=== PATIENT | male | born 1980 | race Caucasian/White ===

== ENCOUNTER 2016-07-20 20:04 | Emergency (ER) | payer SELFPAY ==
[2016-07-20 20:21] VITALS: BP 145/86
[2016-07-20] MEDS ORDERED: LOPERAMIDE 2 MG CAPSULE PO STA (20:42)
[2016-07-20] MEDS ORDERED: IV NORMAL SALINE 1000ML BAG 1,000 ML IV SCH (20:42)
[2016-07-20] MEDS ORDERED: KETOROLAC TROMETHAMINE 30 MG/ML INJ. IV ONE (20:45)
[2016-07-20] MEDS ORDERED: ONDANSETRON PF 4 MG/2 ML VIAL. IV ONE (20:45)
[2016-07-20 21:27] LABS: CALCIUM 9.8 mg/dL (8.5-10.1); CREATININE 0.9 mg/dL (0.7-1.3); GFR 97.2; POTASSIUM 3.6 mmol/L (3.5-5.1)
[2016-07-20 21:29] LABS: ALBUMIN 4.8 g/dL (3.4-5.0); DIRECT BILIRUBIN 0.2 mg/dL (0.0-0.2); TOTAL BILIRUBIN 1.8 mg/dL (0.2-1.0); TOTAL PROTEIN 8.7 g/dL (6.4-8.2)
[2016-07-20] MEDS ORDERED: ONDA4TAB10 SL (21:37)
--- NOTE | 2016-07-20 21:44 | PHYS DOC ---
Past Medical History Past Medical History: Asthma, Hypertension Past Surgical History: Other Additional Past Surgical Histo: RIGHT ANKLE SX Alcohol Use: Rarely Drug Use: None Adult General Chief Complaint Chief Complaint: NAUSEA/VOMITING/DIARRHA HPI HPI Patient is a 35 year old male who presents with multiple episodes of watery diarrhea as well as few episodes of vomiting associated with epigastric abdominal pain that is intermittent and crampy. States he has minimal abdominal pain at this time. His is sick with similar illness. He has chills without measured fever as well as joint aches. He denies dysuria, hematuria, bloody or dark stools, bloody or bilious emesis, chest pain, cough, recent travel, recent antibiotics. Review of Systems Review of Systems Constitutional: Denies measured fever [] Eyes: Denies change in visual acuity, redness, or eye pain [] HENT: Denies nasal congestion or sore throat [] Respiratory: Denies cough or shortness of breath [] Cardiovascular: No additional information not addressed in HPI [] GI: Denies bloody stools or bloody emesis [] : Denies dysuria or hematuria [] Musculoskeletal: Denies back pain or joint pain [] Integument: Denies rash or skin lesions [] Neurologic: Denies headache, focal weakness or sensory changes [] Endocrine: Denies polyuria or polydipsia [] Current Medications Current Medications Current Medications Medications (Trade) Dose Ordered Sig/Siddharth Start Time Stop Time Status Last Admin Dose Admin Ketorolac Tromethamine (Toradol) 15 mg 1X ONCE 07/20/16 20:45 07/20/16 20:47 DC 07/20/16 21:03 15 MG Loperamide HCl (Imodium) 2 mg 1X STAT 07/20/16 20:42 07/20/16 20:47 DC 07/20/16 21:03 2 MG Ondansetron HCl (Zofran) 4 mg 1X ONCE 07/20/16 20:45 07/20/16 20:47 DC 07/20/16 21:02 4 MG Sodium Chloride 1,000 ml @ 1,000 mls/hr Q1H 07/20/16 20:42 07/20/16 21:41 DC 07/20/16 21:03 1,000 MLS/HR Allergies Allergies Allergies Coded Allergies Type Severity Reaction Last Updated Verified morphine Allergy Intermediate Nausea and Vomiting 01/04/15 Yes Physical Exam Physical Exam Constitutional: Well developed, well nourished, no acute distress, non-toxic appearance. [] HENT: Normocephalic, atraumatic, bilateral external ears normal, oropharynx moist, nose normal. [] Eyes: PERRLA, EOMI. [] Neck: Normal range of motion, supple. [] Cardiovascular:Heart rate regular rhythm, no murmur [] Lungs & Thorax: Bilateral breath sounds clear to auscultation [] Abdomen: Bowel sounds normal, soft, no tenderness. [] Skin: Warm, dry, no erythema, no rash. [] Back: Normal ROM. [] Extremities: No tenderness, ROM intact, no edema. [] Neurologic: Alert and oriented X 3, normal motor function, normal sensory function, no focal deficits noted. [] Psychologic: Affect normal, judgement normal, mood normal. [] Current Patient Data Vital Signs Vital Signs Date Time Temp Pulse Resp B/P (MAP) Pulse Ox O2 Delivery O2 Flow Rate FiO2 07/20/16 20:21 98.4 61 16 145/86 (105) 97 Room Air 98.4 Lab Values Laboratory Tests Test 07/20/16 21:00 Sodium Level 139 mmol/L (136-145) Potassium Level 3.6 mmol/L (3.5-5.1) Chloride Level 102 mmol/L (98-107) Carbon Dioxide Level 28 mmol/L (21-32) Anion Gap 9 (6-14) Blood Urea Nitrogen 18 mg/dL (8-26) Creatinine 0.9 mg/dL (0.7-1.3) Estimated GFR (Cockcroft-Gault) 97.2 Glucose Level 114 mg/dL (70-99) H Calcium Level 9.8 mg/dL (8.5-10.1) Total Bilirubin 1.8 mg/dL (0.2-1.0) H Direct Bilirubin 0.2 mg/dL (0.0-0.2) Aspartate Amino Transferase (AST) 23 U/L (15-37) Alanine Aminotransferase (ALT) 34 U/L (16-63) Alkaline Phosphatase 75 U/L (46-116) Total Protein 8.7 g/dL (6.4-8.2) H Albumin 4.8 g/dL (3.4-5.0) Lipase 90 U/L (73-393) Laboratory Tests 07/20/16 21:00 Course & Med Decision Making Course & Med Decision Making Pertinent Labs and Imaging studies reviewed. (See chart for details) Workup is unremarkable. He is feeling better after medications and would like to go home. He is tolerating oral intake. Return precautions given. He understands and agrees with plan. Dragon Disclaimer Dragon Disclaimer This electronic medical record was generated, in whole or in part, using a voice recognition dictation system. Departure Departure Impression: Primary Impression: Epigastric abdominal pain Additional Impression: Nausea vomiting and diarrhea Disposition: HOME, SELF-CARE Condition: STABLE Referrals: NO PCP (PCP) Patient Instructions: Diet for Diarrhea, Adult Additional Instructions: Take Zofran as needed for nausea. Take Imodium as needed for diarrhea. Drink liquids to stay hydrated. Follow-up with your primary care doctor. Return for any concerns. Scripts Ondansetron (ZOFRAN ODT) 4 Mg Tab.rapdis 1 TAB SL Q8HRS Y for NAUSEA/VOMITING, #10 TAB Prov: Laxmi OSCAR MD 07/20/16 Problem Qualifiers Laxmi OSCAR MD July 20, 2016 21:44
== END 2016-07-20 21:50 | disposition home or self-care (01) ==
LOC: ER 21:21
DX: R19.7 Diarrhea, unspecified (principal); R11.2 Nausea with vomiting, unspecified; R10.13 Epigastric pain; I10 Essential (primary) hypertension; J45.909 Unspecified asthma, uncomplicated; Z88.5 Allergy status to narcotic agent
CPT/HCPCS: 36415; 80048; 80076; 83690; 96361; 96374; 96375; 99284; J1885; J2405; J7030

== ENCOUNTER 2018-12-04 01:10 | Emergency (ER) | payer SELFPAY ==
[~2018-12-04] VITALS: Ht 182.9 cm; Wt 90.7 kg
[~2018-12-04 01:10] MED LIST: ONDA4TAB10 SL
[2018-12-04 01:44] LABS: BASO # 0.1 x10^3/uL (0.0-0.2); BASO % 1 % (0-3); EOS # 0.2 x10^3/uL (0.0-0.7); EOS % 2 % (0-3); HEMATOCRIT 45.4 % (39.0-53.0); HEMOGLOBIN 16.2 g/dL (13.0-17.5); LYMPH # 3.7 x10^3/uL (1.0-4.8); LYMPH % 40 % (24-48); MEAN CORPUSCULAR HEMOGLOBIN 31 pg (25-35); MEAN CORPUSCULAR HGB CONC 36 g/dL (31-37); MEAN CORPUSCULAR VOLUME 87 fL (79-100); MONO # 0.6 x10^3/uL (0.0-1.1); MONO % 7 % (0-9); NEUT # 4.6 x10^3/uL (1.8-7.7); NEUT % 50 % (31-73); PLATELET COUNT 204 x10^3/uL (140-400); RED BLOOD COUNT 5.24 x10^6/uL (4.30-5.70); RED CELL DISTRIBUTION WIDTH 13.9 % (11.5-14.5); WHITE BLOOD COUNT 9.2 x10^3/uL (4.0-11.0)
[2018-12-04 01:49] LABS: CALCIUM 9.2 mg/dL (8.5-10.1); CREATININE 0.8 mg/dL (0.7-1.3); GFR 109.4; POTASSIUM 3.5 mmol/L (3.5-5.1)
[2018-12-04 01:55] LABS: ALBUMIN 4.3 g/dL (3.4-5.0); ALBUMIN/GLOBULIN RATIO 1.3 (1.0-1.7); TOTAL BILIRUBIN 0.3 mg/dL (0.2-1.0); TOTAL PROTEIN 7.6 g/dL (6.4-8.2)
--- NOTE | 2018-12-04 02:14 | PHYS DOC ---
Past Medical History Past Medical History: Asthma, Hypertension Past Surgical History: Other Additional Past Surgical Histo: RIGHT ANKLE SX Alcohol Use: Heavy Drug Use: None Adult General Chief Complaint Chief Complaint: HYPERTENSION HPI HPI 38-year-old male presents to emergency department with complaints of cough, elevated blood pressure. Patient has a chest pain or shortness of breath. He sta rebel his family history of hypertension, his grandfather recently . Patient spent a lot of stress and measure his blood pressure consistently, the his blood pressures been elevated. He is unable to get into primary care physician for couple of weeks. He presents tonight because he is concerned. Patient denies any headache or visual changes, denies abdominal pain nausea or vomiting. Nothing makes his cough worse. Review of Systems Review of Systems Constitutional: Denies fever or chills [] Eyes: Denies change in visual acuity, redness, or eye pain [] HENT: Denies nasal congestion or sore throat [] Respiratory: + cough, no shortness of breath [] Cardiovascular: No additional information not addressed in HPI [] GI: Denies abdominal pain, nausea, vomiting Musculoskeletal: Denies back pain or joint pain [] Integument: Denies rash or skin lesions [] Neurologic: Denies headache, focal weakness or sensory changes [] All other systems were reviewed and found to be within normal limits, except as documented in this note. Allergies Allergies Allergies Coded Allergies Type Severity Reaction Last Updated Verified morphine Allergy Intermediate Nausea and Vomiting 01/04/15 Yes Physical Exam Physical Exam Constitutional: Well developed, well nourished, no acute distress, non-toxic appearance. [] HENT: Normocephalic, atraumatic, bilateral external ears normal, oropharynx moist, no oral exudates, nose normal. [] Eyes: PERRLA, EOMI, conjunctiva normal, no discharge. [] Cardiovascular:Heart rate regular rhythm, no murmur [] Lungs & Thorax: Bilateral breath sounds clear to auscultation [] Abdomen: Bowel sounds normal, soft, no tenderness, no masses, no pulsatile masses. [] Skin: Warm, dry, no erythema, no rash. [] Extremities: No tenderness, no edema. [] Neurologic: Alert and oriented X 3, no focal deficits noted. [] Psychologic: Affect normal, judgement normal, mood normal. [] Current Patient Data Vital Signs Vital Signs Date Time Temp Pulse Resp B/P (MAP) Pulse Ox O2 Delivery O2 Flow Rate FiO2 12/04/18 01:10 97.8 81 17 158/87 (110) 97 Room Air 97.8 Lab Values Laboratory Tests Test 12/04/18 01:25 White Blood Count 9.2 x10^3/uL (4.0-11.0) Red Blood Count 5.24 x10^6/uL (4.30-5.70) Hemoglobin 16.2 g/dL (13.0-17.5) Hematocrit 45.4 % (39.0-53.0) Mean Corpuscular Volume 87 fL (79-100) Mean Corpuscular Hemoglobin 31 pg (25-35) Mean Corpuscular Hemoglobin Concent 36 g/dL (31-37) Red Cell Distribution Width 13.9 % (11.5-14.5) Platelet Count 204 x10^3/uL (140-400) Neutrophils (%) (Auto) 50 % (31-73) Lymphocytes (%) (Auto) 40 % (24-48) Monocytes (%) (Auto) 7 % (0-9) Eosinophils (%) (Auto) 2 % (0-3) Basophils (%) (Auto) 1 % (0-3) Neutrophils # (Auto) 4.6 x10^3/uL (1.8-7.7) Lymphocytes # (Auto) 3.7 x10^3/uL (1.0-4.8) Monocytes # (Auto) 0.6 x10^3/uL (0.0-1.1) Eosinophils # (Auto) 0.2 x10^3/uL (0.0-0.7) Basophils # (Auto) 0.1 x10^3/uL (0.0-0.2) Sodium Level 145 mmol/L (136-145) Potassium Level 3.5 mmol/L (3.5-5.1) Chloride Level 109 mmol/L (98-107) H Carbon Dioxide Level 25 mmol/L (21-32) Anion Gap 11 (6-14) Blood Urea Nitrogen 15 mg/dL (8-26) Creatinine 0.8 mg/dL (0.7-1.3) Estimated GFR (Cockcroft-Gault) 109.4 BUN/Creatinine Ratio 19 (6-20) Glucose Level 120 mg/dL (70-99) H Calcium Level 9.2 mg/dL (8.5-10.1) Total Bilirubin 0.3 mg/dL (0.2-1.0) Aspartate Amino Transferase (AST) 17 U/L (15-37) Alanine Aminotransferase (ALT) 28 U/L (16-63) Alkaline Phosphatase 89 U/L (46-116) Total Protein 7.6 g/dL (6.4-8.2) Albumin 4.3 g/dL (3.4-5.0) Albumin/Globulin Ratio 1.3 (1.0-1.7) Laboratory Tests 12/04/18 01:25 Laboratory Tests 12/04/18 01:25 EKG EKG EKG reviewed, normal sinus rhythm heart rate 75, no evidence of acute ST or T wave change pressure, no STEMI appreciated.[] Interpretation Time: Interpretation time 0200 Radiology/Procedures Radiology/Procedures wet read of cxr reveals no evidence of acute process, no effusion or consolidation [] Course & Med Decision Making Course & Med Decision Making Pertinent Labs and Imaging studies reviewed. (See chart for details) []38-year-old male presents to emergency department with complaints of cough, elevated blood pressure. Patient has a chest pain or shortness of breath. He states his family history of hypertension, his grandfather recently . Patient spent a lot of stress and measure his blood pressure consistently, the his blood pressures been elevated. He is unable to get into primary care physician for couple of weeks. He presents tonight because he is concerned. Patient denies any headache or visual changes, denies abdominal pain nausea or vomiting. Nothing makes his cough worse. Labs reviewed. X-ray reveals no evidence of acute consolidation. Blood pressure improved emergency department, I have recommended further evaluation with different sized cuff at home as the one he has been up recalibrated. I have provided information regarding blood pressure monitoring for future reference that he may take to his primary care physician's office when establishing care. At this time would not start patient on blood pressure medication given his current readings. Discussed with the patient discharge plans, he is understanding of the discharge plans. Return precautions provided Dragon Disclaimer Dragon Disclaimer This electronic medical record was generated, in whole or in part, using a voice recognition dictation system. Departure Departure Impression: Primary Impression: Elevated blood pressure reading Additional Impression: Cough Disposition: 01 HOME, SELF-CARE Condition: STABLE Referrals: NO PCP (PCP) Patient Instructions: Cough, Adult, [id number], Form - Blood Pressure Record Sheet, How to Take Your Blood Pressure, [id number] Additional Instructions: Recommend follow up with PCP 3 - 5 days Return to the ER with worsening symptoms, intractable pain, fever, altered mental status Tylenol/Motrin as needed for pain Chest xray without evidence of acute process (no pneumonia, fluid) appreciated Problem Qualifiers VISHAL WU MD Dec 04, 2018 02:14
[2018-12-04 02:18] VITALS: BP 128/65
--- NOTE | 2018-12-04 03:23 | RAD ---
EXAM: CHEST ONE VIEW. HISTORY: Cough. COMPARISON: None. FINDINGS: A frontal view of the chest is obtained. There are no confluent infiltrates. There is no pneumothorax or pleural effusion. The heart is not enlarged. IMPRESSION: 1. No confluent infiltrates. Electronically signed by: Meg Flores MD (12/04/2018 3:20 AM) [id number]
--- NOTE | 2018-12-04 06:20 | EKG ---
[facility] [address] [place] [address] Test Date: 2018-12-04 Test Time: 01:43:26 Pat Name: KIRAN MARTINEZ Department: Room: Gender: M [employer]: : 1980 Requested By: VISHAL WU Order Number: [id number] Reading MD: Measurements Intervals [place] Rate: 75 P: 34 DE: 156 QRS: 51 QRSD: 86 T: 49 QT: 356 QTc: 400 Interpretive Statements SINUS RHYTHM QRS(T) CONTOUR ABNORMALITY CONSIDER ANTEROLATERAL MYOCARDIAL DAMAGE POSSIBLY ABNORMAL ECG RI6.01 No previous ECG available for comparison
== END 2018-12-04 02:35 | disposition home or self-care (01) ==
LOC: ER 01:10
DX: R03.0 Elevated blood-pressure reading, without diagnosis of hypertension (principal); R05 Cough; J45.909 Unspecified asthma, uncomplicated; F10.20 Alcohol dependence, uncomplicated; Y90.9 Presence of alcohol in blood, level not specified; Z82.49 Family history of ischemic heart disease and other diseases of the circulatory system; Z88.5 Allergy status to narcotic agent
CPT/HCPCS: 36415; 71045; 80053; 85025; 93005; 99285-25

== ENCOUNTER 2020-07-21 18:20 | Emergency (ER) | payer SELFPAY ==
[~2020-07-21] VITALS: Ht 182.9 cm; Wt 81.8 kg
[2020-07-21 18:29] VITALS: BP 159/96
--- NOTE | 2020-07-21 18:29 | PHYS DOC ---
Past Medical History Past Medical History: Asthma, Hypertension Past Surgical History: Other Additional Past Surgical Histo: RIGHT ANKLE SX Smoking Status: Current Every Day Smoker Alcohol Use: Heavy Drug Use: None General Adult HPI: HPI: Patient is a 39 year old male with no past medical history presents for evaluation of alcohol intoxication. Patient states he drinks 3-4 x a week. Patient admits to drinking a lot of beer. Patient was found walking on the side of a street in [place]. 911 was called and patient was given an option to go with Police or EMS On arrival patient is very emotional- tearful. He is A/Ox4 Alcohol on his breath. Denies HI or SI. Review of Systems: Review of Systems: Constitutional: Denies fever or chills. [] Eyes: Denies change in visual acuity. [] HENT: Denies nasal congestion or sore throat. [] Respiratory: Denies cough or shortness of breath. [] Cardiovascular: Denies chest pain or edema. [] GI: Denies abdominal pain, nausea, vomiting, bloody stools or diarrhea. [] : Denies dysuria. [] Musculoskeletal: Denies back pain or joint pain. [] Integument: Denies rash. [] Neurologic: Denies headache, focal weakness or sensory changes. [] Endocrine: Denies polyuria or polydipsia. [] Lymphatic: Denies swollen glands. [] Psychiatric: Denies depression or anxiety. [] Heart Score: C/O Chest Pain: N/A Risk Factors: Risk Factors: DM, Current or recent (<one month) smoker, HTN, HLP, family history of CAD, obesity. Risk Scores: Score 0 - 3: 2.5% MACE over next 6 weeks - Discharge Home Score 4 - 6: 20.3% MACE over next 6 weeks - Admit for Clinical Observation Score 7 - 10: 72.7% MACE over next 6 weeks - Early Invasive Strategies Allergies: Allergies: Allergies Coded Allergies Type Severity Reaction Last Updated Verified morphine Allergy Intermediate Nausea and Vomiting 01/04/15 Yes Physical Exam: PE: General: alert, no acute distress. Skin: warm, dry and intact. Head:: Normocephalic, atraumatic. Neck: Trachea midline. Eyes: EOMI, Normal conjunctiva, No drainage CARDIOVASCULAR: Regular rate and rhythm RESPIRATORY: No respiratory distress Back: Full range of motion. MUSCULOSKELETAL: Full range of motion of bilateral upper and lower extremities. GASTROINTESTINAL: Abdomen soft without rebound or guarding. NEUROLOGICAL: Alert and noted to person, place and time. No neurological deficits observed, intoxicated Psychiatric: Cooperative. anxious, tearful EKG: EKG: [] Radiology/Procedures: Radiology/Procedures: [] Course & Med Decision Making: Course & Med Decision Making Pertinent Labs and Imaging studies reviewed. (See chart for details) []Patient up walking around in ER. Patient will not stay in his room. Patient has ambulated to the bathroom without assist. Patient clinically sober. Patient to be discharged. Dragon Disclaimer: Dragon Disclaimer: This electronic medical record was generated, in whole or in part, using a voice recognition dictation system. Departure Departure Impression: Primary Impression: Alcohol intoxication Disposition: 01 HOME / SELF CARE / HOMELESS Condition: STABLE Referrals: NO PCP (PCP) Patient Instructions: Alcohol Intoxication HARSHA FARRIS I DO July 21, 2020 18:29
== END 2020-07-21 20:56 | disposition home or self-care (01) ==
LOC: ER 18:20
DX: F10.229 Alcohol dependence with intoxication, unspecified (principal); J45.909 Unspecified asthma, uncomplicated; I10 Essential (primary) hypertension; F17.200 Nicotine dependence, unspecified, uncomplicated; Z88.5 Allergy status to narcotic agent; Y90.9 Presence of alcohol in blood, level not specified
CPT/HCPCS: 99283

== ENCOUNTER 2020-10-21 02:16 | Emergency (ER) | payer SELFPAY ==
[~2020-10-21] VITALS: Ht 182.9 cm; Wt 90.9 kg
[2020-10-21 03:16] VITALS: BP 140/80
== END 2020-10-21 03:26 | disposition left against medical advice (07) ==
LOC: ER 02:16
DX: N48.89 Other specified disorders of penis (principal); Z53.21 Procedure and treatment not carried out due to patient leaving prior to being seen by health care provider

== ENCOUNTER 2021-06-12 22:16 | Emergency (ER) | payer SELFPAY ==
[~2021-06-12] VITALS: Ht 182.9 cm; Wt 97.7 kg
[2021-06-13 01:35] LABS: BASO # 0.1 x10^3/uL (0.0-0.2); BASO % 1 % (0-3); EOS # 0.1 x10^3/uL (0.0-0.7); EOS % 1 % (0-3); HEMATOCRIT 45.4 % (39.0-53.0); HEMOGLOBIN 16.2 g/dL (13.0-17.5); LYMPH # 3.6 x10^3/uL (1.0-4.8); LYMPH % 38 % (24-48); MEAN CORPUSCULAR HEMOGLOBIN 30 pg (25-35); MEAN CORPUSCULAR HGB CONC 36 g/dL (31-37); MEAN CORPUSCULAR VOLUME 84 fL (79-100); MONO # 0.6 x10^3/uL (0.0-1.1); MONO % 6 % (0-9); NEUT % 54 % (31-73); PLATELET COUNT 239 x10^3/uL (140-400); RED BLOOD COUNT 5.38 x10^6/uL (4.30-5.70); RED CELL DISTRIBUTION WIDTH 13.6 % (11.5-14.5); WHITE BLOOD COUNT 9.4 x10^3/uL (4.0-11.0)
[2021-06-13 01:46] LABS: CALCIUM 8.5 mg/dL (8.5-10.1); CREATININE 0.8 mg/dL (0.7-1.3); GFR 108.2; POTASSIUM 3.9 mmol/L (3.5-5.1)
[2021-06-13 01:52] LABS: ALBUMIN 4.7 g/dL (3.4-5.0); ALBUMIN/GLOBULIN RATIO 1.6 (1.0-1.7); TOTAL BILIRUBIN 0.7 mg/dL (0.2-1.0); TOTAL PROTEIN 7.7 g/dL (6.4-8.2)
[2021-06-13 01:56] LABS: ACETAMIN < 2 mcg/ml (10-30); ETHANOL 243 mg/dL (0-10); SALIC 2.7 mg/dL (2.8-20.0)
[2021-06-13 02:29] LABS: AMPHETAMINE/METHAMPHETAMINE NEG (NEG); BARBITURATES NEG (NEG); BENZODIAZEPINES NEG (NEG); CANNABINOIDS NEG (NEG); COCAINE NEG (NEG); METHADONE NEG (NEG); OPIATES NEG (NEG); PHENCYCLIDINE NEG (NEG)
--- NOTE | 2021-06-13 05:52 | PHYS DOC ---
Past Medical History Past Medical History: Asthma, Hypertension Past Surgical History: Other Additional Past Surgical Histo: Ankle surgery Smoking Status: Current Every Day Smoker Alcohol Use: Heavy Drug Use: None Adult General Chief Complaint Chief Complaint: ALCOHOL INTOXICATION HPI HPI 40-year-old male presents for evaluation of alcohol intoxication and suicidal ideation without a specific plan for self-harm. States a good friend of his of a drug overdose about 2 weeks ago. 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 States he has been binge drinking alcohol for 3 days. Denies any self-harm ing estions or actions recently. Calm, cooperative and in no acute distress, though tearful. Review of Systems Review of Systems A 12 point review of systems was completed and was negative except where noted in HPI above. Allergies Allergies Allergies Coded Allergies Type Severity Reaction Last Updated Verified morphine Allergy Intermediate Nausea and Vomiting 06/13/21 Yes Physical Exam Physical Exam 40-year-old male appearing nontoxic and in no acute distress. Head is normocephalic and atraumatic. Neck is supple and nontender. Oropharynx is moist. Lungs are clear to auscultation at all stations. There is a normal S1 and S2 without rubs or gallops and capillary refill is appropriate, less than 2 seconds globally. Abdomen is soft, nontender and nondistended. Skin is warm and dry without cyanosis, clubbing or edema. Psychiatrically, patient demonstrates appropriate mood and affect and is alert. Current Patient Data Vital Signs Vital Signs Date Time Temp Pulse Resp B/P (MAP) Pulse Ox O2 Delivery O2 Flow Rate FiO2 06/13/21 01:17 97.7 20 97.7 Lab Values Laboratory Tests Test 06/13/21 01:26 06/13/21 02:10 White Blood Count 9.4 x10^3/uL (4.0-11.0) Red Blood Count 5.38 x10^6/uL (4.30-5.70) Hemoglobin 16.2 g/dL (13.0-17.5) Hematocrit 45.4 % (39.0-53.0) Mean Corpuscular Volume 84 fL (79-100) Mean Corpuscular Hemoglobin 30 pg (25-35) Mean Corpuscular Hemoglobin Concent 36 g/dL (31-37) Red Cell Distribution Width 13.6 % (11.5-14.5) Platelet Count 239 x10^3/uL (140-400) Neutrophils (%) (Auto) 54 % (31-73) Lymphocytes (%) (Auto) 38 % (24-48) Monocytes (%) (Auto) 6 % (0-9) Eosinophils (%) (Auto) 1 % (0-3) Basophils (%) (Auto) 1 % (0-3) Neutrophils # (Auto) 5.0 x10^3/uL (1.8-7.7) Lymphocytes # (Auto) 3.6 x10^3/uL (1.0-4.8) Monocytes # (Auto) 0.6 x10^3/uL (0.0-1.1) Eosinophils # (Auto) 0.1 x10^3/uL (0.0-0.7) Basophils # (Auto) 0.1 x10^3/uL (0.0-0.2) Sodium Level 142 mmol/L (136-145) Potassium Level 3.9 mmol/L (3.5-5.1) Chloride Level 105 mmol/L (98-107) Carbon Dioxide Level 24 mmol/L (21-32) Anion Gap 13 (6-14) Blood Urea Nitrogen 5 mg/dL (8-26) L Creatinine 0.8 mg/dL (0.7-1.3) Estimated GFR (Cockcroft-Gault) 108.2 BUN/Creatinine Ratio 6 (6-20) Glucose Level 98 mg/dL (70-99) Calcium Level 8.5 mg/dL (8.5-10.1) Total Bilirubin 0.7 mg/dL (0.2-1.0) Aspartate Amino Transferase (AST) 20 U/L (15-37) Alanine Aminotransferase (ALT) 35 U/L (16-63) Alkaline Phosphatase 54 U/L (46-116) Total Protein 7.7 g/dL (6.4-8.2) Albumin 4.7 g/dL (3.4-5.0) Albumin/Globulin Ratio 1.6 (1.0-1.7) Salicylates Level 2.7 mg/dL (2.8-20.0) L Salicylate Last Dose Date Salicylate Last Dose Time Acetaminophen Level < 2 mcg/ml (10-30) L Acetaminophen Last Dose Date Acetaminophen Last Dose Time Ethyl Alcohol Level 243 mg/dL (0-10) H Urine Opiates Screen Neg (NEG) Urine Methadone Screen Neg (NEG) Urine Barbiturates Neg (NEG) Urine Phencyclidine Screen Neg (NEG) Urine Amphetamine/Methamphetamine Neg (NEG) Urine Benzodiazepines Screen Neg (NEG) Urine Cocaine Screen Neg (NEG) Urine Cannabinoids Screen Neg (NEG) Urine Ethyl Alcohol Pos (NEG) SARS-CoV-2 Antigen (Rapid) Negative (NEGATIVE) Laboratory Tests 06/13/21 01:26 Laboratory Tests 06/13/21 01:26 EKG EKG [] Radiology/Procedures Radiology/Procedures [] Course & Med Decision Making Course & Med Decision Making Patient is medically cleared for psychiatric screening. PAT team health and wellness advisor has seen the patient and recommends discharge to [facility] for further care. Will transport the patient to [facility] via ambulance given vague self-harm ideation without a specific plan that he has verbalized to staff here. Stable for transport to [facility]. All questions have been answered. Dragon Disclaimer Dragon Disclaimer This electronic medical record was generated, in whole or in part, using a voice recognition dictation system. Departure Departure Impression: Primary Impression: At risk for self harm Additional Impression: Alcohol abuse Disposition: 62 INPATIENT REHAB FACILITY Condition: STABLE Patient Instructions: Alcohol Problems, Suicidal Feelings, How to Help Yourself Additional Instructions: Proceed directly by ambulance to [facility] for further care. Problem Qualifiers CIPRIANO CLAUDIO MD Jun 13, 2021 05:52
== END 2021-06-13 05:50 ==
LOC: ER 22:16
DX: F10.229 Alcohol dependence with intoxication, unspecified (principal); Y90.8 Blood alcohol level of 240 mg/100 ml or more; J45.909 Unspecified asthma, uncomplicated; I10 Essential (primary) hypertension; F17.200 Nicotine dependence, unspecified, uncomplicated; Z88.5 Allergy status to narcotic agent
CPT/HCPCS: 36415; 80053; 80307; 80329; 85025; 87426; 99285; G0480